=== PATIENT | female | born 2000 | race Two or more races ===

== ENCOUNTER 2018-12-18 14:06 | Observation (INO) | payer SELFPAY ==
[2018-12-18 15:25] LABS: BILIRUBIN,URINE NEGATIVE (NEG); CLARITY,URINE CLEAR; COLOR,URINE YELLOW; NITRITE,URINE NEGATIVE (NEG); PROTEIN,URINE NEGATIVE (NEG-TRACE); UROBILINOGEN,URINE 0.2 mg/dL (0.2 mg/dL)
[2018-12-18 15:34] LABS: BACTERIA,URINE 0 /HPF (0-FEW); RBC,URINE 0 /HPF (0-2); SQUAMOUS EPITHELIAL CELL,UR OCC /LPF; WBC,URINE RARE /HPF (0-4)
--- NOTE | 2018-12-18 16:09 | RAD ---
Obstetrical ultrasound, 12/18/2018: History: Unsure of dates, no care There is a single intrauterine fetus in a variable orientation. The biparietal diameter measures 4.9 cm compatible with a gestational age of 20-21 weeks. This corresponds well with the other measurements yielding an average gestational age of 20 weeks and 3 days and a sonographic EDC of 05/04/2019. Normal activity and heart motion were seen. A four-chamber heart is evident with a heart rate of 137 bpm. Fluid is identified in the bladder and stomach. The visualized portions of the spine and kidneys are unremarkable. A three-vessel umbilical cord is identified with a normal cord insertion site. A normal amount of amniotic fluid is present. The placenta lies posteriorly extending into the fundal region. There is no evidence of placenta previa. The cervical length is 3.8 cm. IMPRESSION: Single viable intrauterine fetus of 20-21 weeks gestational age as described above.
== END 2018-12-18 16:24 | disposition home or self-care (01) ==
LOC: 3 SO LND 14:06
PROVIDERS: ADMIT Specialist; ATTEND Specialist
DX: O26.892 Other specified pregnancy related conditions, second trimester (principal); R10.9 Unspecified abdominal pain; N93.9 Abnormal uterine and vaginal bleeding, unspecified; Z3A.25 25 weeks gestation of pregnancy
CPT/HCPCS: 76805; 81001; 87086; G0378; G0379

== ENCOUNTER 2021-09-22 18:53 | Observation (INO) | payer MEDICAID ==
[2020-08-27 15:00] VITALS: BP 106/74
[~2021-09-22] VITALS: Ht 160 cm; Wt 59.7 kg
[~2021-09-22 18:53] MED LIST: IBUP-1027 PO
[2021-09-22] MEDS ORDERED: IV RINGERS,LACTATED 1000ML 1,000 ML IV SCH (19:00)
[2021-09-22 20:38] LABS: BILIRUBIN,URINE NEGATIVE (NEG); CLARITY,URINE CLEAR; COLOR,URINE YELLOW; NITRITE,URINE NEGATIVE (NEG); PH,URINE 6.5 (<5.0-8.0); PROTEIN,URINE NEGATIVE (NEG-TRACE)
[2021-09-22 20:47] LABS: BACTERIA,URINE FEW /HPF (0-FEW); BARBITURATES NEG (NEG); BENZODIAZEPINES NEG (NEG); CANNABINOIDS NEG (NEG); COCAINE NEG (NEG); METHADONE NEG (NEG); OPIATES NEG (NEG); PHENCYCLIDINE NEG (NEG); RBC,URINE 0 /HPF (0-2); WBC,URINE OCC /HPF (0-4)
[2021-09-22 20:55] LABS: AMPHETAMINE/METHAMPHETAMINE NEG (NEG)
[2021-09-22 23:46] LABS: BASO % 0 % (0-3); EOS # 0.3 x10^3/uL (0.0-0.7); EOS % 3 % (0-3); HEMATOCRIT 21.6 % (36.0-47.0); LYMPH # 1.1 x10^3/uL (1.0-4.8); LYMPH % 11 % (24-48); MEAN CORPUSCULAR HEMOGLOBIN 18 pg (25-35); MEAN CORPUSCULAR HGB CONC 30 g/dL (31-37); MEAN CORPUSCULAR VOLUME 61 fL (79-100); MONO # 0.6 x10^3/uL (0.0-1.1); MONO % 6 % (0-9); NEUT # 8.1 x10^3/uL (1.8-7.7); NEUT % 81 % (31-73); PLATELET COUNT 246 x10^3/uL (140-400); RED BLOOD COUNT 3.54 x10^6/uL (3.50-5.40); RED CELL DISTRIBUTION WIDTH 19.2 % (11.5-14.5)
[2021-09-22 23:47] LABS: HEMOGLOBIN 6.5 g/dL (12.0-15.5)
[2021-09-23 00:02] LABS: ALBUMIN 2.3 g/dL (3.4-5.0); ALBUMIN/GLOBULIN RATIO 0.5 (1.0-1.7); CALCIUM 7.6 mg/dL (8.5-10.1); CREATININE 0.5 mg/dL (0.6-1.0); GFR 152.9; POTASSIUM 3.9 mmol/L (3.5-5.1); TOTAL BILIRUBIN 0.7 mg/dL (0.2-1.0); TOTAL PROTEIN 6.5 g/dL (6.4-8.2)
[2021-09-23 05:00] LABS: ANISOCYTOSIS SLIGHT; HYPOCHROMIA MARKED; MICROCYTOSIS MARKED; PLT ESTIMATE ADEQUATE (ADEQUATE); POLYCHROMASIA SLIGHT
[2021-09-23] MEDS ORDERED: LIDOCAINE 1% PF 30 ML VIAL. INJ PRN (07:30)
[2021-09-23] MEDS ORDERED: ACETAMINOPHEN 325 MG TABLET. PO PRN (07:30)
[2021-09-23] MEDS ORDERED: IV RINGERS,LACTATED 1000ML 1,000 ML IV SCH (07:30)
[2021-09-23] MEDS ORDERED: OXYTOCIN 30 UNIT/500 ML PREMIX 500 ML IV PRN ×2 (07:30)
[2021-09-23] MEDS ORDERED: BUTORPHANOL 2 MG/ML VIAL. IVP PRN ×2 (07:30)
[2021-09-23] MEDS ORDERED: TERBUTALINE 1 MG/ML VIAL. SQ PRN (07:30)
[2021-09-23] MEDS ORDERED: 0.9 % SODIUM CHLORIDE 10 ML DISP.SYRIN. IV PRN (07:30)
--- NOTE | 2021-09-23 11:23 | RAD ---
US OB LIMITED, US BIOPHYSICAL PROFILE W/O Clinical Indication: Reason: No Care; possible labor. Covid positive. Comparison: None. Technique: Multiple grayscale images, color Doppler, and M-mode images of the uterus are obtained. Findings: There is a single intrauterine gestation in cephalic presentation. The placenta is posterior in locat ion without evidence of placenta previa. The amount of amniotic fluid appears appropriate. Amniotic fluid index is 10.4 cm. Cervical length is 4.1 cm. Biometrical data: BPD = 9.1 cm for 37 weeks 0 days. HC = 32.8 cm for 37 weeks 2 days. AC = 34.2 cm for 37 weeks 1 days. FL = 7.3 cm for 37 weeks 1 days. HC/AC ratio = 0.96. Overall, the estimated sonographic gestational age is 37 weeks and 3 days for an estimated date of de liver of October 11, 2021. The estimated date of delivery provided by the last menstrual period is u nknown. Estimated weight is 3270 +/- 484 grams. The estimated heart rate is 113 beats per minute. A complete anatomic survey is not technically possible due to advanced gestational age. There i s a three-vessel cord. stomach and urinary bladder are identified. Both kidneys are seen. The maternal ovaries are not identified in the adnexa due to overlying bowel gas. breathing movements: 2 out of 2. motion: 2 out of 2. tone: 2 out of 2. Amniotic fluid volume: 2 out of 2. Therefore, the biophysical profile score is 8 out of 8. IMPRESSION: 1. Single live intrauterine gestation with estimated sonographic gestational age of 37 weeks and 3 d ays. 2. Biophysical profile score is 8 out of 8. Electronically signed by: Ryley Duong MD (09/23/2021 11:20 AM) [id number]
[2021-09-23] MEDS ORDERED: IRON SUCROSE COMPLEX 200 MG in IV NORMAL SALINE 100ML 100 ML IV ONE (13:00)
== END 2021-09-23 17:09 | disposition home or self-care (01) ==
LOC: 3 SO LND 18:53
PROVIDERS: ADMIT Obstetrics & Gynecology; ATTEND Obstetrics & Gynecology
DX: O26.899 Other specified pregnancy related conditions, unspecified trimester (principal); R10.30 Lower abdominal pain, unspecified; O62.9 Abnormality of forces of labor, unspecified; Z3A.00 Weeks of gestation of pregnancy not specified; Z79.899 Other long term (current) drug therapy
CPT/HCPCS: 36415; 76815; 76819; 80053; 80307; 81001; 82728; 83540; 84466; 85025; 86592; 86762; 86850; 86900; 86901; 87340; 87426; 87653; 96365; 96366; G0378; J1756; J7120; G0379

== ENCOUNTER 2021-09-25 10:17 | Observation (INO) | payer SELFPAY ==
[2020-08-27 15:00] VITALS: BP 106/74
[2021-09-25] MEDS ORDERED: IRON SUCROSE COMPLEX 200 MG in IV NORMAL SALINE 100ML 100 ML IV ONE (10:45)
== END 2021-09-25 15:29 | disposition home or self-care (01) ==
LOC: 3 SO LND 10:17
PROVIDERS: ADMIT Obstetrics & Gynecology; ATTEND Obstetrics & Gynecology
DX: O98.53 Other viral diseases complicating the puerperium (principal); U07.1 COVID-19; Z3A.37 37 weeks gestation of pregnancy
CPT/HCPCS: 36415; 59025; 82947; 96365; 96366; G0378; G0379; J1756

== ENCOUNTER 2021-09-27 14:30 | Observation (INO) | payer MEDICAID ==
[2020-08-27 15:00] VITALS: BP 106/74
[~2021-09-27] VITALS: Ht 160 cm; Wt 59.7 kg
[2021-09-27] MEDS ORDERED: IV RINGERS,LACTATED 1000ML 1,000 ML IV PRN (15:15)
[2021-09-27] MEDS ORDERED: IRON SUCROSE COMPLEX 200 MG in IV NORMAL SALINE 100ML 100 ML IV ONE (16:00)
[2021-09-27 16:05] LABS: BASO # 0.1 x10^3/uL (0.0-0.2); BASO % 1 % (0-3); BILIRUBIN,URINE NEGATIVE (NEG); CLARITY,URINE CLEAR; COLOR,URINE YELLOW; EOS # 0.3 x10^3/uL (0.0-0.7); EOS % 3 % (0-3); HEMATOCRIT 21.4 % (36.0-47.0); LYMPH # 1.9 x10^3/uL (1.0-4.8); LYMPH % 18 % (24-48); MEAN CORPUSCULAR HEMOGLOBIN 20 pg (25-35); MEAN CORPUSCULAR HGB CONC 31 g/dL (31-37); MEAN CORPUSCULAR VOLUME 64 fL (79-100); MONO # 0.6 x10^3/uL (0.0-1.1); MONO % 5 % (0-9); NEUT # 7.7 x10^3/uL (1.8-7.7); NEUT % 73 % (31-73); NITRITE,URINE NEGATIVE (NEG); PLATELET COUNT 232 x10^3/uL (140-400); PROTEIN,URINE NEGATIVE (NEG-TRACE); RED BLOOD COUNT 3.36 x10^6/uL (3.50-5.40); RED CELL DISTRIBUTION WIDTH 19.4 % (11.5-14.5); UROBILINOGEN,URINE 0.2 mg/dL (0.2 mg/dL); WHITE BLOOD COUNT 10.6 x10^3/uL (4.0-11.0)
[2021-09-27 16:13] LABS: HEMOGLOBIN 6.6 g/dL (12.0-15.5)
[2021-09-27 16:29] LABS: BACTERIA,URINE 0 /HPF (0-FEW); RBC,URINE 0 /HPF (0-2)
--- NOTE | 2021-09-27 22:00 | PDOC1 ---
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 No PNC. Initial eval last week for ROL, panel completed with significant Anemia. Presents today for venofer infusion # 3. Denies complaints. Denies complications with previous labor/delivery. Her friend is present for translation. Past Medical History: PMH: Denies Grav: 4 Para: 3 Social History: Smoke: No ALCOHOL: none Medications: Meds: Current Medications Medications (Trade) Dose Ordered Sig/Savage Route PRN Reason Start Time Stop Time Status Last Admin Dose Admin Iron Sucrose 200 mg/Sodium Chloride 110 ml @ 55 mls/hr 1X ONCE IV 09/27/21 16:00 09/27/21 17:59 DC 09/27/21 16:46 Allergies: Coded Allergies: No Known Drug Allergies (Unverified , 12/18/18) Physical Exam: PE: GENERAL: No apparent distress. Alert and oriented. HEENT: Head normocephalic, atraumatic. NECK: Supple LUNGS: Clear to auscultation. HEART: RRR, S1, S2 present, pulses intact ABDOMEN: Soft, positive bowel sounds. EXTREMITIES: No cyanosis or edema. NEUROLOGIC: Normal speech, normal tone PSYCHIATRIC: Normal affect, normal mood. SKIN: No ulceration. Labs: Laboratory Tests Test 09/27/21 15:50 White Blood Count 10.6 x10^3/uL (4.0-11.0) Red Blood Count 3.36 x10^6/uL (3.50-5.40) L Hemoglobin 6.6 g/dL (12.0-15.5) *L Hematocrit 21.4 % (36.0-47.0) L Mean Corpuscular Volume 64 fL (79-100) L Mean Corpuscular Hemoglobin 20 pg (25-35) L Mean Corpuscular Hemoglobin Concent 31 g/dL (31-37) Red Cell Distribution Width 19.4 % (11.5-14.5) H Platelet Count 232 x10^3/uL (140-400) Neutrophils (%) (Auto) 73 % (31-73) Lymphocytes (%) (Auto) 18 % (24-48) L Monocytes (%) (Auto) 5 % (0-9) Eosinophils (%) (Auto) 3 % (0-3) Basophils (%) (Auto) 1 % (0-3) Neutrophils # (Auto) 7.7 x10^3/uL (1.8-7.7) Lymphocytes # (Auto) 1.9 x10^3/uL (1.0-4.8) Monocytes # (Auto) 0.6 x10^3/uL (0.0-1.1) Eosinophils # (Auto) 0.3 x10^3/uL (0.0-0.7) Basophils # (Auto) 0.1 x10^3/uL (0.0-0.2) Urine Collection Type Unknown Urine Color Yellow Urine Clarity Clear Urine pH 7.0 (<5.0-8.0) Urine Specific [place] <=1.005 (1.000-1.030) Urine Protein Negative mg/dL (NEG-TRACE) Urine Glucose (UA) Negative mg/dL (NEG) Urine Ketones (Stick) Negative mg/dL (NEG) Urine Blood Negative (NEG) Urine Nitrite Negative (NEG) Urine Bilirubin Negative (NEG) Urine Urobilinogen Dipstick 0.2 mg/dL (0.2 mg/dL) Urine Leukocyte Esterase Trace (NEG) Urine RBC 0 /HPF (0-2) Urine WBC 1-4 /HPF (0-4) Urine Squamous Epithelial Cells Many /LPF Urine Bacteria 0 /HPF (0-FEW) Laboratory Tests 09/27/21 15:50 Laboratory Tests 09/27/21 15:50 Assessment & Plan: A/P 1. 21yo @ 38.0 weeks 2. DILIP (6.6/21.4) - Continue Venofer 200mg IVPB 3x/weekly for three more doses. 3. No PNC 4. Impaired glucose tolerance - No three hour result (75 fasting)/192/151 5. Reactive NST Instructed patient to f/u in office this week. Discussed M referral for management of significant anemia at term, pt. amenable to referral to [facility]. Reviewed NOLAN, PIH and labor precautions. NICHOLE LAMAR CNM Sep 27, 2021 22:00
== END 2021-09-27 22:00 | disposition home or self-care (01) ==
LOC: 3 SO LND 14:30
PROVIDERS: ADMIT Obstetrics & Gynecology; ATTEND Obstetrics & Gynecology
DX: O99.013 Anemia complicating pregnancy, third trimester (principal); D64.9 Anemia, unspecified; Z3A.38 38 weeks gestation of pregnancy; Z79.899 Other long term (current) drug therapy
CPT/HCPCS: 36415; 59025; 81001; 85025; 87086; 96365; 96366; G0378; G0379; J1756